=== PATIENT | female | born 1980 | race Caucasian/White ===

== ENCOUNTER 2023-06-03 13:36 | Emergency (ER) | payer MEDICAID ==
[~2023-06-03] VITALS: Ht 172.7 cm; Wt 142.6 kg
[~2023-06-03 13:36] MED LIST: METH-360 PO
[2023-06-03 16:07] VITALS: BP 124/70; PULSE 79; RESP 18; TEMP 98.1; O2SAT 97
[2023-06-03 17:20] LABS: BASOPHILS % (AUTO) 0.3 % (0-1); EOSINOPHILS # (AUTO) 0.1 X10'3 (0-0.9); EOSINOPHILS % (AUTO) 1.1 % (0-6); HEMOGLOBIN 14.7 g/dl (12.0-16.0); LYMPHOCYTES # (AUTO) 2.9 X10'3 (1.1-4.8); LYMPHOCYTES % (AUTO) 41.5 % (21-51); MEAN CORPUSCULAR HEMOGLOBIN 32.5 PG (27.0-31.0); MEAN CORPUSCULAR HGB CONC 33.4 g/dL (33.0-36.5); MEAN CORPUSCULAR VOLUME 97.2 FL (78-98); MEAN PLATELET VOLUME 7.7 FL (7.4-10.4); MONOCYTES # (AUTO) 0.4 X10'3 (0-0.9); MONOCYTES % (AUTO) 6.3 % (2-12); NEUTROPHILS # (AUTO) 3.6 X10'3 (1.8-7.7); NEUTROPHILS % (AUTO) 50.8 % (42-75); PLATELET COUNT 258 X10'3 (140-440); RED BLOOD COUNT 4.53 X10'6 (4.20-5.60)
[2023-06-03 17:35] LABS: ALANINE AMINOTRANSFERASE 53 U/L (12-78); ALBUMIN 3.4 G/DL (3.4-5.0); ALBUMIN/GLOBULIN RATIO 0.9 (1.1-1.5); ALKALINE PHOSPHATASE 90 IU/L (46-116); ANION GAP 6 (8-16); ASPARTATE AMINO TRANSFERASE 28 U/L (10-37); BILIRUBIN,TOTAL 0.3 MG/DL (0.1-1.0); BLOOD UREA NITROGEN 8 MG/DL (7-18); BUN/CREATININE RATIO 8.9 (10.0-20.0); CALCIUM 9.6 MG/DL (8.5-10.1); CHLORIDE 105 MMOL/L (99-107); GLUCOSE 94 MG/DL (70-104); SODIUM 141 MMOL/L (135-145); TOTAL CARBON DIOXIDE 29.8 MMOL/L (24-32); TOTAL PROTEIN 7.2 G/DL (6.4-8.2); eCRCL 80 ML/MIN; eGFR 68 ML/MIN
[2023-06-03 17:43] LABS: ETHANOL 54 MG/DL (<10); THYROID STIMULATING HORMONE 1.65 ulU/ml (0.34-4.50)
[2023-06-03 18:06] LABS: URINE HCG NEGATIVE (NEG)
--- NOTE | 2023-06-03 18:07 | NUR ---
INTERVIEWED PT AND PT NEVER STATED ANYTHING ABOUT SUICIDE OR HARMING HERSELF OR ANYONE ELSE. PT WANTED MENTAL HEALTH/ADDICTION HELP. ASKED FOR RESOURCES ABOUT MENTAL/ADDICTION HELP. PROVIDER AND I GAVE HER PAMPLETS ABOUT RESOURCES THAT SHE WAS ASKING ABOUT.
[2023-06-03 18:12] LABS: BILIRUBIN,URINE NEGATIVE (Neg); CLARITY,URINE CLEAR (Clear); COLOR,URINE YELLOW (Yellow); GLUCOSE, URINE NEGATIVE (Neg); KETONES,URINE NEGATIVE (Neg); LEUKOCYTE ESTERASE ,URINE NEGATIVE (Neg); NITRITES, URINE NEGATIVE (Neg); OCCULT BLOOD,URINE NEGATIVE (Neg); PH,URINE 5.5 (4.8-8.0); PROTEIN,URINE NEGATIVE (Neg); UROBILINOGEN,URINE 0.2 E.U/dL (0.2-1.0)
[2023-06-03 18:25] LABS: URINE AMPHETAMINE SCREEN NEGATIVE (Neg); URINE BARBITUATE SCREEN NEGATIVE (Neg); URINE BENZODIAZEPINES SCREEN NEGATIVE (Neg); URINE CANNABINOID SCREEN NEGATIVE (Neg); URINE COCAINE SCREEN NEGATIVE (Neg); URINE METHADONE SCREEN NEGATIVE (Neg); URINE OPIATE SCREEN NEGATIVE (Neg); URINE PHENCYCLIDINE SCREEN NEGATIVE (Neg)
[2023-06-03 18:34] LABS: UA COLLECTION TYPE VOIDED
== END 2023-06-03 18:11 | disposition home or self-care (01) ==
LOC: ER 13:37
DX: R45.851 Suicidal ideations (principal); Z20.822 Contact with and (suspected) exposure to COVID-19; G43.909 Migraine, unspecified, not intractable, without status migrainosus; Z56.0 Unemployment, unspecified; Z79.899 Other long term (current) drug therapy
CPT/HCPCS: 36415; 80053; 80305; 80320; 81003; 81025; 84443; 85025; 87811; 99284

== ENCOUNTER 2024-02-25 11:32 | Emergency (ER) | payer MEDICAID ==
[~2024-02-25] VITALS: Ht 177.8 cm; Wt 115.0 kg
[2024-02-25 11:35] VITALS: BP 173/88; PULSE 72; O2SAT 96
[2024-02-25 12:57] VITALS: RESP 18; TEMP 98.7
== END 2024-02-25 12:58 | disposition home or self-care (01) ==
LOC: ER 11:33
DX: F10.10 Alcohol abuse, uncomplicated (principal); G43.909 Migraine, unspecified, not intractable, without status migrainosus; Z91.09 Other allergy status, other than to drugs and biological substances; Z79.899 Other long term (current) drug therapy; Z90.49 Acquired absence of other specified parts of digestive tract; Y90.9 Presence of alcohol in blood, level not specified
CPT/HCPCS: 99281

== ENCOUNTER 2024-11-15 05:59 | Day surgery (SDC) | payer MEDICAID ==
[~2024-11-15] VITALS: Ht 177.8 cm; Wt 141.2 kg
[2024-11-15] MEDS ORDERED: NO HOME MEDS (06:20)
[2024-11-15 06:24] VITALS: BP 144/68; PULSE 63; RESP 12; TEMP 98.3; O2SAT 98
[2024-11-15] MEDS ORDERED: normal saline 1000ml 1,000 ML IV PRN (06:25)
[2024-11-15] MEDS ORDERED: albumin 25% 100mL bottle x 1 IV PRN (06:25)
== END 2024-11-15 08:52 | disposition home or self-care (01) ==
LOC: SSTAY O 05:59
PROVIDERS: ATTEND Nurse Practitioner
DX: R18.8 Other ascites (principal); Z53.8 Procedure and treatment not carried out for other reasons; Z90.49 Acquired absence of other specified parts of digestive tract; Z85.038 Personal history of other malignant neoplasm of large intestine
CPT/HCPCS: A6258; A6449